=== PATIENT | male | born 1965 | race Native Hawaiian/Other Pacific Islander ===

== ENCOUNTER 2017-07-08 06:44 | Day surgery (SDC) | payer OTHER ==
[2017-07-08] MEDS ORDERED: Propofol 10 mg/ml Inj (20 ML) ONE ×2 (07:50)
[2017-07-08] MEDS ORDERED: Simethicone 40 mg/0.6 ml Liquid (30 ml) ONE ×2 (07:53)
[2017-07-08] MEDS ORDERED: Lidocaine Hydrochloride 5 ML INJ ONE (08:02)
[2017-07-08 08:32] VITALS: TEMP 98.4
[2017-07-08 08:40] VITALS: RESP 13
[2017-07-08 09:11] VITALS: BP 107/70; PULSE 76; O2SAT 98
== END 2017-07-08 09:41 | disposition home or self-care (01) ==
LOC: C.ENDO 06:44
PROVIDERS: ATTEND Internal Medicine
DX: K62.5 Hemorrhage of anus and rectum (principal); R10.13 Epigastric pain; R14.0 Abdominal distension (gaseous); D12.5 Benign neoplasm of sigmoid colon; K44.9 Diaphragmatic hernia without obstruction or gangrene; K29.70 Gastritis, unspecified, without bleeding
CPT/HCPCS: 43239; 45380; 88305; J2704

== ENCOUNTER 2018-09-19 07:36 | Outpatient (CLI) | payer OTHER | END 2018-09-19 07:37 | disposition home or self-care (01) | LOC: C.LAB 07:36 | DX: E79.0 Hyperuricemia without signs of inflammatory arthritis and tophaceous disease (principal) ==

== ENCOUNTER 2018-09-23 07:41 | Outpatient (CLI) | payer OTHER | END 2018-09-23 07:42 | disposition home or self-care (01) | LOC: C.USIC 07:41 ==